=== PATIENT | female | born 1980 | race African-American/Black ===

== ENCOUNTER 2024-04-07 22:21 | Emergency (ER) | payer OTHER, SELFPAY ==
[2024-04-07 22:24] VITALS: BP 157/91
--- NOTE | 2024-04-07 23:49 | ED.GENMED ---
History of Present Illness
General
Chief Complaint: Generalized Pain
Source: patient and family (mother)
Time Seen by Provider: 04/07/24 23:36
History of Present Illness
History of Present Illness:
44-year-old female presents to the emergency room complaining of back pain and left knee pain. Patient has a history of spinal issues for which she sees pain management. She is supposed to have an epidural injection at some point in the next
couple weeks. Patient is prescribed oxycodone for her chronic back pain and knee pain. Patient states the medication is helping with her back pain but not with her knee pain. Patient also is experiencing heavy menstrual bleeding. She states she
uses depends for her menstrual bleeding and uses 2 or 3 a day. Patient does not see a pbx technician. Patient's mother is with her and is the one who brought up the menstrual bleeding. The patient is only concerned about her knee pain. Patient had
been hospitalized here 2021 with severe anemia requiring multiple transfusions related to menstrual bleeding. Patient evidently did not follow-up for this as an outpatient. Patient has been prescribed other medications which she is not compliant
with. She is supposed be taking metformin and lisinopril.
Past History
Past History
ED Past Medical History: GERD and Other (Gallstones)
ED Past Surgical History:
Social History
Tobacco: Non-smoker
Phy Exam
Physical Exam
Physical Exam:
General: Awake, Alert, Oriented X3. Patient has has very high BMI, appears uncomfortable
Vitals: unremarkable
Head: Atraumatic
Eyes: Pupils equal, EOMI
Throat: Airway intact, no exudates
Neck: Trachea midline
Lungs: Clear and equal b/l
Heart: Regular rate, no murmurs
Abd: Soft, Nontender, No pulsatile mass
Neuro: Nonfocal
Skin: Warm, dry, no rash
Extremities: pulses equal b/l, no edema
Course
Orders/Labs/Results
Orders:
Orders
04/07/24 23:46
Basic Metabolic Panel Urgent
Complete Blood Count/With Diff Urgent
HCG, Serum Qualitative Screen Urgent
Test Result ONCE
04/07/24 23:47
Type+Screen Urgent
HYDROmorphone [Dilaudid] 1 mg IV NOW STA
04/08/24 00:00
CR Knee - Left 4 Or More View* Urgent
Reason For Exam: knee pain
04/08/24 01:38
Knee Immobilizer Left-Treatmen ONCE
HYDROmorphone [Dilaudid] 0.5 mg IV NOW STA
04/08/24 01:40
Tranexamic Acid [Cyklokapron] 1,300 mg PO NOW STA
Abnormal Lab Results
04/08/24
00:00
WBC 12.4 H 10^3/uL
(4.8-10.8)
RBC 3.61 L 10^6/uL
(4.20-5.40)
Hgb 6.1 L* g/dL
(12.0-16.0)
Hct 22.2 L %
(37.0-47.0)
MCV 61.5 L fL
(81.0-99.0)
MCH 16.9 L pg
(27.0-31.0)
MCHC 27.5 L g/dL
(33.0-37.0)
RDW 19.1 H %
(11.5-14.5)
Plt Count 455 H 10^3/uL
(130-400)
Abs Immat Gran (auto) 0.1 H 10^3/uL
(0-0.05)
Absolute Neuts (auto) 8.3 H 10^3/uL
(1.4-6.5)
Absolute Monos (auto) 0.9 H 10^3/uL
(0.1-0.6)
Immature Gran % 0.8 H %
(0-0.5)
Glucose 107 H mg/dl
(70-99)
Crossmatch IS Only See Detail
04/08/24 00:00
04/08/24 00:00
Vital Signs
Initial and Last Documented VS:
Initial Vital Signs
Temp Pulse Resp BP Pulse Ox
98.1 F 106 18 157/91 98
04/07/24 22:24 04/07/24 22:24 04/07/24 22:24 04/07/24 22:24 04/07/24 22:24
Last Documented Vital Signs
Temp Pulse Resp BP Pulse Ox
98.1 F 101 18 156/81 100
04/07/24 22:24 04/08/24 00:36 04/08/24 00:36 04/08/24 00:36 04/08/24 00:36
MDM/Problems Addressed
Differential Diagnosis Includes:
Radiculopathy, chronic pain syndrome. From a vaginal bleeding standpoint dysfunctional uterine bleeding, symptomatic anemia
MDM/Problems Addressed:
Patient's knee x-ray is unremarkable. Suspect she is having an exacerbation of chronic pain. Was given a low bit of pain medicine here which helped. From a vaginal bleeding standpoint patient found to have a significant anemia at hemoglobin of
6.1. We discussed transfusion here and in fact I ordered a unit of blood but the patient decided that she did not want to get the blood now. She has family care issues and want to go home with her family. We discussed the importance of returning
if she feels any worse. Patient given prescriptions for tranexamic acid as well as iron. She should call her pbx technician for [place] in the morning. Return for shortness of breath, dizziness etc. Patient has had dysfunctional uterine bleeding for
some time. She had an ultrasound here in 2021 which was unremarkable. Patient tells me she did have an endometrial biopsy by a pbx technician in [place] which showed no signs of cancer. This was about a year ago.
*Pulse Oximetry
Patient hypoxic: no
*Critical Care Note
Total Time (30-74mins, 75-104mins- exclusive of procedures): Not Applicable
ED Attending Note
-
Portions of this chart may have been created with voice recognition software.� Occasional wrong word or��sound alike� substitutions may have occurred due to the inherent limitations of voice recognition software.
Discharge Plan
Departure
Patient Disposition: Home (Routine Discharge)
Date of Disposition: 04/08/24
Time of Disposition: 01:41
Patient with high blood pressure during this ER visit?: No
Condition: Good
Discharge Problem:
Dysfunctional uterine bleeding, Anemia
Instructions: Heavy Periods ED
Prescriptions:
New
ferrous sulfate [FeroSul] 325 mg (65 mg iron) tablet
325 mg PO TID Qty: 90 0RF
tranexamic acid 650 mg tablet
1,300 mg PO TID 5 Days Qty: 30 0RF
No Action
ferrous sulfate [FeroSul] 325 MG tablet
325 mg PO DAILY
norethindrone acetate 5 MG tablet
5 mg PO BID
Patient Comments:
patient was at [facility] on 03/10/22 and only recieved 28 tablets
oxycodone 10 MG tablet
10 mg PO TID
Patient Comments:
03/13/22 pt picked up on 02/21/22 #90
cyanocobalamin (vitamin B-12) 1,000 mcg Tablet
1,000 mcg PO DAILY 30 Days Qty: 30 0RF
Referrals:
NONE,* [Family Provider] -
Noemí Gardner MD [Active] -
Activity Restrictions/Additional Instructions:
Please call your pbx technician first thing in the morning to discuss the abnormal bleeding. Your blood count is very low. Return to the ER if you develop shortness of breath, dizziness or feel you are getting worse.
Interventions
Interventions:
*Risk Screen - Suicide Last Done: 04/08/24 00:39
*General Assessment Last Done: 04/08/24 00:39
*Neglect/Abuse Screening Last Done: 04/08/24 00:39
*Nursing Disposition Last Done: 04/08/24 02:32
Discharge Date and Time
Discharge Date/Time: 04/08/24 02:33
Print Language: TUNISIAN
[2024-04-08] MEDS: DILAUDID 1 MG IV (00:13)
[2024-04-08 00:33] LABS: % Basophils 0.7 % (0-2); % Eosinophils 0.8 % (0-6); % Immature Granulocytes 0.8 % (0-0.5); % Lymphocytes 23.5 % (20.5-51.1); % Monocytes 6.9 % (1.7-9.3); % Neutrophils 67.3 % (42.2-75.2); Absolute Basophils 0.1 10^3/uL (0-0.2); Absolute Eosinophils 0.1 10^3/uL (0-0.7); Absolute Immature Granulocytes 0.1 10^3/uL (0-0.05); Absolute Lymphocytes 2.9 10^3/uL (1.2-3.4); Absolute Monocytes 0.9 10^3/uL (0.1-0.6); Absolute Neutrophils 8.3 10^3/uL (1.4-6.5); Hematocrit 22.2 % (37.0-47.0); Hemoglobin 6.1 g/dL (12.0-16.0); Mean Corp Hgb Conc. 27.5 g/dL (33.0-37.0); Mean Corpuscular Hgb 16.9 pg (27.0-31.0); Mean Corpuscular Volume 61.5 fL (81.0-99.0); Mean Platelet Volume 9.8 fL (7.4-10.4); Nucleated Red Blood Cells % 0.4 %; Platelet Count 455 10^3/uL (130-400); Red Blood Cell Count 3.61 10^6/uL (4.20-5.40); Red Cell Dist. Width 19.1 % (11.5-14.5); White Blood Cell Count 12.4 10^3/uL (4.8-10.8)
[2024-04-08 00:36] VITALS: BP 156/81
[2024-04-08 00:39] LABS: HCG, Serum Qualitative Screen Negative
[2024-04-08 00:45] LABS: Blood Urea Nitrogen 11 mg/dl (7-17); Calcium 9.9 mg/dl (8.4-10.2); Carbon Dioxide 27 mmol/L (22-30); Chloride 101 mmol/L (98-107); Glucose 107 mg/dl (70-99); Potassium 4.2 mmol/L (3.5-5.1); Sodium 137 mmol/L (135-145); eGFR > 60.00
[2024-04-08] MEDS: CYKLOKAPRON 1300 MG PO (01:48)
[2024-04-08] MEDS: DILAUDID 0.5 MG IV (01:49)
[2024-04-08 01:50] LABS: Anisocytosis 1+; Microcytosis 2+; Normal RBC Morphology No
[2024-04-08 01:51] LABS: Polychromasia Occasional; Target Cells 1+
[2024-04-08 01:52] LABS: Tear Drop Red Blood Cells Occasional
[2024-04-08 01:53] LABS: Hypochromasia 2+
[2024-04-08 01:54] LABS: Basophilic Stippling Occasional; Ovalocytes 1+; Stomatocytes Occasional
== END 2024-04-08 02:33 | disposition home or self-care (01) ==
LOC: EMR 22:21
PROVIDERS: EMERGENCY PHYSICIAN Emergency Medicine
DX: N93.8 Other specified abnormal uterine and vaginal bleeding (principal); D64.9 Anemia, unspecified; M25.562 Pain in left knee; M54.9 Dorsalgia, unspecified; G89.29 Other chronic pain; K21.9 Gastro-esophageal reflux disease without esophagitis
CPT/HCPCS: 99284; 96374; 96376; 73564; 80048; 84703; 85025; 86850; 86900; 86901

== ENCOUNTER 2024-04-29 06:06 | Inpatient (IN) | payer OTHER, SELFPAY ==
[2024-04-29] VITALS (18 sets, daily range): BP systolic 114–155; BP diastolic 59–97; BMI 51.8
--- NOTE | 2024-04-29 03:33 | ED.GENMED ---
History of Present Illness
General
Chief Complaint: Breathing Problem
Source: patient and family
Exam Limitations: none
Time Seen by Provider: 04/29/24 03:20
Nursing documentation reviewed up to this point in time: agreed with
History of Present Illness
History of Present Illness:
Pleasant 44-year-old female GMitch, P3-1-3-3, presents with acute on chronic low back pain and dysfunctional uterine bleeding has been present for the last 3 to 4 months. Patient also complaining of dizziness and shortness of breath. To control the
bleeding, patient has been using Depends stuffed with tissues. She states that she has been leaking blood through the depends and down her leg. She states that she changes 4 times a day. Patient was seen by [facility] not within the [place]
network, 1 year ago and had an ultrasound and stated 'there was no cancer'. Patient is followed by pain management for chronic spine issues. She states she just had an MRI if she stated that 'some abnormalities were found '. Patient has been
having heavy menstrual bleeding for the last 4 months. Was seen in the emergency department recently and prescribed a medication to help with the uterine bleeding. She states that 'the pharmacy lost the prescription' and was unable to get it
filled. Patient and mom both did not call back to the emergency department to rectify the situation. Patient also has a history of medical noncompliance. She is on metformin and lisinopril but admits to not taking them compliantly. Patient
reports that pain management has prescribed oxycodone for her pain but states that the oxycodone does not typically work. Patient was seen in the emergency department recently. She states that she was given a prescription for norethindrone, but
'the pharmacy lost the prescription '. She has not started on it.
Past History
Past History
ED Past Medical History: GERD and Other (Gallstones)
ED Past Surgical History:
Social History
Tobacco: Non-smoker
Review of Systems
Review of Systems
Allergies reviewed?: Yes
Other source history: family
All Other Systems: Not applicable
Constitutional: Reports no symptoms
EENT: Reports no symptoms
Respiratory: Reports no symptoms
Cardiac: Reports no symptoms
ABD/GI: Reports no symptoms
: Reports no symptoms
Musculoskeletal: Reports no symptoms
Skin: Reports no symptoms
Neurological: Reports no symptoms
Endocrine: Reports no symptoms
Hematologic/Lymphatic: Reports no symptoms
Psychiatric: Reports anxiety
Phy Exam
General Physical Exam
General Presentation: mild distress
General age: appears older than age
General Skin: warm and dry
General Habitus: obese
General Mental: alert
General Hydration: appears well hydrated
Cardiovascular Exam
Cardiovascular Exam: regular rate/rhythm and no edema
Pulmonary Exam
Pulmonary Exam: lungs clear and no respiratory distress
Gastrointestinal Exam
Gastrointestinal Exam: normal bowel sounds, soft and non distended
Musculoskeletal Exam
Musculoskeletal Exam: full ROM and neck pain
Skin Exam
Skin Exam: normal color and warm/dry
Psychiatric Exam
Psychiatric Exam: normal mood/affect
Course
Orders/Labs/Results
Orders:
Orders
04/29/24 03:29
Urinalysis Reflex To Culture Urgent
04/29/24 03:30
0.9% Sodium Chloride 1000 ml [Nss] 1,000 ml IV BOLUS
HYDROmorphone [Dilaudid] 0.5 mg IV NOW STA
04/29/24 03:49
Type+Screen Urgent
Complete Blood Count/With Diff Urgent
Comprehensive Metabolic Panel Urgent
Lactic Acid Urgent
Lipase Urgent
PTT Urgent
Prothrombin Time Urgent
Abnormal Lab Results
04/29/24
03:49
RBC 3.08 L 10^6/uL
(4.20-5.40)
Hgb 5.1 L* g/dL
(12.0-16.0)
Hct 18.7 L* %
(37.0-47.0)
MCV 60.7 L fL
(81.0-99.0)
MCH 16.6 L pg
(27.0-31.0)
MCHC 27.3 L g/dL
(33.0-37.0)
RDW 19.5 H %
(11.5-14.5)
Abs Immat Gran (auto) 0.1 H 10^3/uL
(0-0.05)
Absolute Lymphs (auto) 3.5 H 10^3/uL
(1.2-3.4)
Absolute Monos (auto) 0.8 H 10^3/uL
(0.1-0.6)
04/29/24 03:49
Vital Signs
Initial and Last Documented VS:
Initial Vital Signs
Temp Pulse Resp BP Pulse Ox
99.1 F 100 22 142/89 100
04/29/24 02:59 04/29/24 02:59 04/29/24 02:59 04/29/24 02:59 04/29/24 02:59
Last Documented Vital Signs
Temp Pulse Resp BP Pulse Ox
99.1 F 100 22 142/89 100
04/29/24 02:59 04/29/24 02:59 04/29/24 02:59 04/29/24 02:59 04/29/24 02:59
*Critical Care Note
Total Time (30-74mins, 75-104mins- exclusive of procedures): 35
comment:
Critical care statement: A total of 35 minutes of critical care time was provided for this patient. This time is separate from time utilized to perform the aforementioned documented procedures. Aggregate critical care time includes only time
during which I was engaged in work directly related to the patient's care, as described above, whether at the bedside or elsewhere in the Emergency Department.
Patient Management
Social determinants of health affecting care: Poor outpatient follow-up
Discussion with other providers: Hospitalist (For admission to the hospital) and Specialty Plant Supervisor (Spoke with Dr. Krystyna Martinez, who agreed with plan to give blood, TXA, make patient n.p.o., get ultrasound)
Escalation/DeEscalation of care consider admission/obs:
Given patient's critical hemoglobin, patient signed blood consent, and will be admitted to the hospitalist service with a consult to [facility] [facility].
ED Attending Note
-
Portions of this chart may have been created with voice recognition software.� Occasional wrong word or��sound alike� substitutions may have occurred due to the inherent limitations of voice recognition software.
Discharge Plan
Departure
Patient Disposition: Admit
Date of Disposition: 04/29/24
Time of Disposition: 04:38
Admit to: Telemetry
Presentation/result/management discussed w/ accepting MD/DO: Hospitalist
Discharge Problem:
Symptomatic anemia, Dyspnea, DUB (dysfunctional uterine bleeding)
Prescriptions:
No Action
oxycodone 10 MG tablet
10 mg PO TID
metformin
500 mg PO DAILY
Referrals:
NONE,* [Family Provider] -
Interventions
Interventions:
*General Assessment Last Done: 04/29/24 02:59
*Neglect/Abuse Screening Last Done: 04/29/24 02:59
ED- Fall Risk Assessment Last Done: 04/29/24 02:59
*ED COVID-19 Vaccine History Last Done: 04/29/24 02:59
Discharge Date and Time
Print Language: KYRGYZ
[2024-04-29 04:02] LABS: % Basophils 0.7 % (0-2); % Eosinophils 1.4 % (0-6); % Immature Granulocytes 0.5 % (0-0.5); % Monocytes 7.2 % (1.7-9.3); % Neutrophils 57.2 % (42.2-75.2); Absolute Basophils 0.1 10^3/uL (0-0.2); Absolute Eosinophils 0.2 10^3/uL (0-0.7); Absolute Immature Granulocytes 0.1 10^3/uL (0-0.05); Absolute Lymphocytes 3.5 10^3/uL (1.2-3.4); Absolute Monocytes 0.8 10^3/uL (0.1-0.6); Absolute Neutrophils 6.1 10^3/uL (1.4-6.5); Hematocrit 18.7 % (37.0-47.0); Hemoglobin 5.1 g/dL (12.0-16.0); Mean Corp Hgb Conc. 27.3 g/dL (33.0-37.0); Mean Corpuscular Hgb 16.6 pg (27.0-31.0); Mean Corpuscular Volume 60.7 fL (81.0-99.0); Mean Platelet Volume 9.1 fL (7.4-10.4); Nucleated Red Blood Cells % 0.2 %; Platelet Count 394 10^3/uL (130-400); Red Blood Cell Count 3.08 10^6/uL (4.20-5.40); Red Cell Dist. Width 19.5 % (11.5-14.5); White Blood Cell Count 10.6 10^3/uL (4.8-10.8)
[2024-04-29 04:10] LABS: PT 14.2 Sec (11.4-14.6)
[2024-04-29 04:11] LABS: APTT 27.9 Sec (23.4-35.0)
[2024-04-29] MEDS: DILAUDID 0.5 MG IV (04:16)
[2024-04-29] MEDS: NSS 1000 IV ×2 (04:17→07:02)
[2024-04-29 04:20] LABS: Lactic Acid 1.4 mmol/L (0.7-2.0)
[2024-04-29 04:22] LABS: ALT (SGPT) < 10 U/L (0-35); AST (SGOT) 15 U/L (14-36); Alkaline Phosphatase 80 U/L (38-126); Blood Urea Nitrogen 11 mg/dl (7-17); Calcium 9.7 mg/dl (8.4-10.2); Carbon Dioxide 26 mmol/L (22-30); Chloride 103 mmol/L (98-107); Estimated Creatinine Clearance 111 ml/min; Glucose 135 mg/dl (70-99); Lipase 126 U/L (23-300); Potassium 4.1 mmol/L (3.5-5.1); Sodium 138 mmol/L (135-145); Total Bilirubin 0.2 mg/dl (0.2-1.3); Total Protein 7.1 g/dl (6.3-8.2); eGFR > 60.00
[2024-04-29 04:38] LABS: Anisocytosis 2+; Hypochromasia 2+; Normal RBC Morphology No; Ovalocytes Slight; Polychromasia 1+
--- NOTE | 2024-04-29 04:51 | HPS.HSE ---
Family Physician
-
Family Physician: * NONE
Chief Complaint
-
Vagina bleeding last 3-4 months
History of Present Illness
44F with Obesity HX G8, P3-1-3-3 , HX dysfunctional uterine bleeding complicated by ACBLA, Fe def anemia seen at ER for evalaution of intractable heavy menstrual bleeding for last 3- 4months.
-require to change Depends diaper 4 times a day
- also blood leaking through depends and down to her legs
- seen by AIRCRAFT LOADMASTER SUPERINTENDENT 1 year ago and had an ultrasound and stated 'there was no cancer
- seen at ER on 03/19/24 but loss prescription for norethindrone 5 mg PO BID from ER
- HX similar issues in 2021 require admission
- Hgb 5.1 today
At ER:
Tranexamic IV x1
NS 1 L given
Medical History
Past Medical History
Past Medical History: Reports GERD and Other (Gall stones )
Past Surgical History: Reports
Social History
Tobacco: Non-smoker
Alcohol: None
Drug: None
Family History
Family History: Not pertinent
Allergies / Home Medications
Allergies reflects when Allergies were last updated in [facility].
Home Medications with original date entered in [facility]
Allergy/Medication List:
Allergies
Allergy/AdvReac Type Severity Reaction Status Date / Time
No Known Allergies Allergy Verified 04/29/24 02:58
Home Medications
oxycodone 10 mg tablet 10 mg PO TID Pain 03/13/22
metformin 500 mg PO DAILY 04/29/24
Review of Systems
-
Constitutional: Reports No Symptoms
EENT: Reports No Symptoms
Respiratory: Reports No Symptoms
Cardiac: Reports No Symptoms
Abdomen/GI: Reports No Symptoms
: Reports See HPI
Musculoskeletal: Reports No Symptoms
Skin: Reports No Symptoms
Neurological: Reports No Symptoms
Endocrine: Reports No Symptoms
Hematologic/Lymphatic: Reports No Symptoms
Psych: Reports No Symptoms
Physical Exam
Vital Signs
Vital Signs
Temp Pulse Resp BP Pulse Ox
99.1 F 97 20 146/76 99
04/29/24 02:59 04/29/24 04:46 04/29/24 04:46 04/29/24 04:46 04/29/24 04:46
Physical Exam
General: Well Developed, Well Nourished and No Apparent Distress
HEENT: NormoCephalic, Moist mucous membranes and Atraumatic
Respiratory: Clear
Cardiac: S1/S2 and Regular Rhythm; No Murmur or Rub
GI: Soft, Non Tender, Non Distended and Normal Bowel Sounds; No Organomegaly
Rectal: Deferred by Provider
Musculoskeletal: No Clubbing, No Cyanosis and No Edema
Skin: No Rash
Neuro: Nonfocal/grossly intact
Laboratory Results
-
04/29/24 03:49
04/29/24 03:49
Laboratory Results
PT 14.2 Sec (11.4-14.6) 04/29/24 03:49
INR 1.10 04/29/24 03:49
APTT 27.9 Sec (23.4-35.0) 04/29/24 03:49
Lactic Acid 1.4 mmol/L (0.7-2.0) 04/29/24 03:49
Total Bilirubin 0.2 mg/dl (0.2-1.3) 04/29/24 03:49
AST 15 U/L (14-36) 04/29/24 03:49
ALT < 10 U/L (0-35) 04/29/24 03:49
Alkaline Phosphatase 80 U/L (38-126) 04/29/24 03:49
Lipase 126 U/L (23-300) 04/29/24 03:49
Data Reviewed
-
Lab Data: Labs Reviewed by me
Old Records: Reviewed
Impression/Plan
-
Reviewed VS: T 99.1, BP 145/95 HR 90s POx 93 RR 19s
Data
Hgb 5.1 - 6.1 on 04/08/24, 8 on 03/14/22
MCV 60s
Unremarkable CMP
Pending US pelvis only
03/14/22 US Pelvis W Transvag Combined1.
1. The endometrium measures 1.7 cm in thickness, which is borderline thickened, depending on the patient's phase of her menstrual cycle. Consider tissue sampling and/or saline infused hysterosonogram as appropriate.
2. No additional sonographic abnormalities demonstrated.
Last hospitalist admission:03/13/22 - 03/14/22
PRIMARY DIAGNOSIS:
1. Acute vaginal bleed with acute blood loss anemia.
2. Iron deficiency anemia.
3. B12 deficiency.
ASSESSMENT & PLAN
Pending Rx reconciliation
Acute blood loss anemia due to intractable vaginal bleeding due to HX DUH
HX Iron def anemia
Hgb 5.1 on admission
- T & C
- Blood consented by ER attd
- Pending 2 PRBCs Tx
- f/u pot transfusion Hgb
- cont Norethindrone BID
- IV Venofer while in the hospital
- start B12 supplement
- COMMISSIONS COORDINATOR consulted
Narcotic dependent Ch LBP
- PRN narcotic analgesia
- avoid NSAIDS and Toradol
- PT/OT
HX GERD
Morbid obesity with chr ambulatory dysfunction
DVT prophylaxis: SCD
CODE status: Full
IP TLM
[2024-04-29] MEDS: TRANEXAMIC ACID 100 IV (05:28)
[2024-04-29] MEDS: ZOFRAN 4 MG IV (05:48)
[2024-04-29] MEDS: DILAUDID 1 MG IV ×4 (07:20→19:53)
[2024-04-29 09:45] LABS: Iron < 20 ug/dl (37-170)
[2024-04-29 09:53] LABS: Total Iron Binding Capacity 424 ug/dl (265-497)
[2024-04-29] MEDS: GLUCOPHAGE 500 MG PO (10:05)
--- NOTE | 2024-04-29 10:11 | PTCARENOTE ---
Received patient from ED in stretcher, patient ambulated to bathroom then to bed; Blood currently transfusing; Family at bedside; Patient states vaginal bleeding has decreased since arriving to the ED; Call hugo within reach; Bed in lowest position,
wheels locked; Assessment ongoing
--- NOTE | 2024-04-29 10:17 | CON.MD ---
Consultation - Medical
-
Patient seen and examined
Full consult dictated
Assessment: Severe anemia. Abnormal Uterine Bleeding. Patient noncompliant with prior management for same problem.
Recommendation: Resume Aygestin 5 mg 2 pills daily for 10 days, then stop, expect menses and then begin Aygestin 5 mg daily for 20 days. Return to office in 2-4 weeks for re-evaluation, importance stressed. Recommend consult with GI to exclude any
GI involvement in the anemia. Take daily vitamin with iron and eat iron rich foods
Time spent reviewing records, personal review of ultrasound with radiologist and time spent with patinet including coordination of care required 60 minutes
[2024-04-29 11:24] LABS: HCG, Serum Qualitative Screen Negative
[2024-04-29 12:56] LABS: Glucose - Point of Care 356 mg/dl (70-99)
[2024-04-29 13:23] LABS: Urine Albumin Negative (Neg - Trace); Urine Bilirubin Negative (Negative); Urine Character Clear (Clear); Urine Color Yellow; Urine Glucose Negative (Negative); Urine Ketone Negative (Negative); Urine Leukocyte Negative (Negative); Urine Nitrite Negative (Negative); Urine Occult Blood 1+ (Negative); Urine Specific Gravity 1.025 (<1.030); Urine Urobilinogen Negative (Neg - 1+)
[2024-04-29] MEDS: NOVOLOG FLEXPEN-LOW RESISTANCE 5 UNITS SC (13:45)
[2024-04-29 13:46] LABS: Urine Hyaline Cast 0-2 /LPF (0-2); Urine Mucus Moderate; Urine Squamous Cell 16-20 /LPF (Few)
[2024-04-29 13:47] LABS: Urine Bacteria Few (Negative); Urine Red Blood Cell None Seen /HPF (0-2); Urine White Cell 0-2 /HPF (0-5)
[2024-04-29] MEDS: BENADRYL 25 MG IV (14:03)
--- NOTE | 2024-04-29 14:10 | PTCARENOTE ---
Called to room by patient for nausea/vomiting one time, patient also complained of itching throughout body; Patient denies chest pain and shortness of breath; Vital signs taken - temperature 98.2 oral, SaO2 99%, HR 94, BP 142/80; Dr. Caraballo made
aware; Stat dose of IV Benadryl ordered, see MAR; Per Dr. Caraballo continue blood transfusion and recheck hemoglobin once finished; Plan of care ongoing
[2024-04-29] MEDS: ZOFRAN 4 MG PO (14:57)
[2024-04-29 16:07] LABS: Hemoglobin 6.7 g/dL (12.0-16.0)
--- NOTE | 2024-04-29 17:00 | W.DCSUMMARY ---
Discharge Summary
Discharge Data
Date of Admission: 04/29/24
Date of Discharge: 04/29/24
-
Pending Results: No
Hospital Course
Discharge diagnosis
Dysfunctional uterine bleeding
Chronic anemia with drifting down hemoglobin.
Nonanaphylactic transfusion reaction
Type 2 diabetes/known NIDDM
Obesity with BMI of 51
Chronic pain with opiate dependence.
Patient presents with dysfunctional uterine bleeding and chronic anemia with trending down hemoglobin to 5. Remains hemodynamically stable. Seen in consultation by ADVANCED MANUFACTURING ASSOCIATE.
Laboratory workup with negative test.
Stable electrolytes and renal function.
Pelvic ultrasound with normal endometrial thickness
Treated with tranexamic acid while in the emergency room with improvement of vaginal bleeding
Transfused 2 units of packed blood cells with improved creatinine from 5-6.7
While transfused had known anaphylactic transfusion reaction with itching and nausea responded to Benadryl
Follow-up bilirubin and urinalysis evaluated as a part of transfusion reaction workup.
Treated with IV iron.
As per ADVANCED MANUFACTURING ASSOCIATE recommendation will be initiated on norethindrone as outpatient
Follow-up information for ADVANCED MANUFACTURING ASSOCIATE provided in discharge instructions
Discharge Plan
-
Patient Disposition: Home (Routine Discharge)
Discharge Diagnosis/Procedures: Dysfunctional uterine bleeding.
Condition: Good
Diet: Diabetic, Carb Controlled
Referrals:
Ac Peraza MD [Active] - in two to four weeks
NONE,* [Family Provider] -
Prescriptions:
New
norethindrone acetate 5 mg tablet
10 mg PO DAILY Qty: 30 0RF
Rx Instructions:
Start with 10mg daily for 10 days, change to 5 mg daily for 20 days beginning on day 5 of the cycle
Continued
oxycodone 10 MG tablet
10 mg PO TID
omeprazole 20 mg Tablet,Delayed Release (Dr/Ec)
40 mg PO DAILY
melatonin 5 mg Tablet
5 mg PO HSPRN PRN (Reason: sleep)
lidocaine 5 % Ointment
1 applic TOPICAL TIDPRN PRN (Reason: left knee)
metformin 500 mg Tablet
500 mg BID
Discontinued
ibuprofen 800 mg Tablet
800 mg PO BIDPRN PRN (Reason: mild pain)
Discharge Orders:
Discharge Patient (As Directed); Ordered 04/29/24
Ordered By: Heath Caraballo
Discharge Date and Time
Print Language: EQUATORIAL GUINEAN
[2024-04-29 17:36] LABS: Glucose - Point of Care 147 mg/dl (70-99)
[2024-04-29] MEDS: NOVOLOG FLEXPEN-LOW RESISTANCE SC (17:37)
[2024-04-29] MEDS: FERRLECIT 110 MG IV (18:18)
--- NOTE | 2024-04-29 18:42 | PTCARENOTE ---
Patient currently refusing to give urine specimen and to have blood drawn for follow-up labs regarding transfusion reaction protocol
[2024-04-29 19:17] LABS: Total Bilirubin 0.5 mg/dl (0.2-1.3)
[2024-04-29] MEDS: FLUSH (NSS) 2 FLUSH IV (19:56)
--- NOTE | 2024-04-29 19:57 | PTCARENOTE ---
Addendum entered by Bryanna Mart RN 04/29/24 20:09:
This nurse was able to draw blood and then patient provided urine.
Original Note:
Rn mission coordinator- This nurse entered patient's room to given patient her dose of iron. Patient and mother having multiple questions. Patient asking why she was being dc with hemoglobin of 6.7. Explained dc plan of care. Clarification with
Stu the medication that patient was being d/c on. Instructed patient to take the medication as prescribed and to call Dr. Peraza office and get an appointment with them within a month. 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
afford to come back and forth to the hospital or doctors office. This nurse explained that Dr. Pearza indicted through tiger text that if she didnt take the medication, she would bleed, and her hemoglobin would only get worse and that she needed
to follow up with Dr. Peraza to confirm that the medication is working. Patient provided with dc instructions and card explaining how to access her patient portal. Patient then requesting dilaudid for pain. Primary nurse informed of of above
conversation and request for dilaudid.
[2024-04-29 20:22] LABS: Glucose - Point of Care 138 mg/dl (70-99)
== END 2024-04-29 20:37 | disposition home or self-care (01) | DRG 760 ==
LOC: 2 SOUTH 06:06
PROVIDERS: ADMITTING PHYSICIAN Internal Medicine; ATTENDING PHYSICIAN Internal Medicine; EMERGENCY PHYSICIAN Student in an Organized Health Care Education/Training Program; OTHER PHYSICIAN Obstetrics & Gynecology
PROC: 30233N1 Transfusion of Nonautologous Red Blood Cells into Peripheral Vein, Percutaneous Approach (ICD-10-PCS; 2024-04-29)
DX: N93.8 Other specified abnormal uterine and vaginal bleeding (principal); D62 Acute posthemorrhagic anemia; Z68.43 Body mass index [BMI] 50.0-59.9, adult; F11.20 Opioid dependence, uncomplicated; K21.9 Gastro-esophageal reflux disease without esophagitis; E11.9 Type 2 diabetes mellitus without complications; D50.9 Iron deficiency anemia, unspecified; E53.8 Deficiency of other specified B group vitamins; E66.01 Morbid (severe) obesity due to excess calories; G89.29 Other chronic pain; Z79.84 Long term (current) use of oral hypoglycemic drugs; T80.92XA Unspecified transfusion reaction, initial encounter; R11.0 Nausea; L29.9 Pruritus, unspecified; Y84.8 Other medical procedures as the cause of abnormal reaction of the patient, or of later complication, without mention of misadventure at the time of the procedure; Z91.198 Patient's noncompliance with other medical treatment and regimen for other reason
CPT/HCPCS: 36430; 76856; 80053; 81003; 81015; 82247; 82728; 82962; 83540; 83550; 83605; 83690; 84703; 85018; 85025; 85610; 85730; 86078; 86850; 86900; 86901; 86920; 96361; 96374; 96375; 99291; J2916; P9016

== ENCOUNTER 2024-09-22 01:22 | Emergency (ER) | payer OTHER, SELFPAY ==
[2024-09-22] VITALS (7 sets, daily range): BP systolic 129–172; BP diastolic 76–99; BMI 52.3
[2024-09-22 01:48] LABS: Urine Albumin Trace (Neg - Trace); Urine Bilirubin Negative (Negative); Urine Character Clear (Clear); Urine Color Yellow; Urine Glucose Negative (Negative); Urine Ketone Negative (Negative); Urine Leukocyte Negative (Negative); Urine Nitrite Negative (Negative); Urine Occult Blood Negative (Negative); Urine Specific Gravity 1.025 (<1.030); Urine Urobilinogen Negative (Neg - 1+)
--- NOTE | 2024-09-22 02:34 | ED.GENMED ---
History of Present Illness
General
Chief Complaint: Flank Pain
Source: patient and previous hospital records (Previous hospitalization April 2024 for severe symptomatic anemia related to dysfunctional uterine bleeding.)
Exam Limitations: none
Time Seen by Provider: 09/22/24 02:18
Nursing documentation reviewed up to this point in time: agreed with
History of Present Illness
History of Present Illness:
This is a 44-year-old woman who has history of chronic back pain, chronic left knee pain, chronically narcotic dependent�follows with pain management.
She also has history of dysfunctional uterine bleeding, anemia related to DU B and was hospitalized April 2024 for severe symptomatic anemia requiring blood transfusions. She admits that she has not followed up with [facility] SUPERVISOR nor with follow-up labs
since April.
She presents with 2-day history of exacerbation of her low back pain, exacerbation of her left knee pain stating oxycodone has not been effective for her pain. She denies injury nor fall.
She denies fever nor chills, denies abdominal pain but does note 2 loose stools today. She has had no nausea nor vomiting, no cough but does note some dyspnea on exertion over the past few days.
Her menses have been heavy, she bled for 2 weeks with menstrual period ending 2 days ago. She denies chest pain nor palpitations, denies dizziness nor lightheadedness.
Similar complaint of back pain and left knee pain noted March 2024. Noted to be anemic at that point with hemoglobin of 6.1. Declined transfusion but then returned 1 month later, admitted for observation, received 2 units of packed red blood cells.
Evaluated by CARPENTRY SUPERVISOR. Given TXA, IV iron and discharged on norethindrone.
Patient states her menstrual periods are not continuous as they were previously but continues with heavy bleeding.
Past History
Past History
ED Past Medical History: GERD, HTN, NIDDM, Other (Gallstones; chronic back pain, chronic left knee pain-narcotic dependent) and Other (Dysfunctional uterine bleeding with symptomatic anemia)
ED Past Surgical History: Cholecystectomy and
Social History
Tobacco: Non-smoker
Alcohol: None
Personal:
Living: with family
Employment: Not employed
Family History
Family History: Other (Noncontributory)
Phy Exam
Physical Exam
Physical Exam:
GENERAL: A 44-year-old obese woman appears somewhat older than stated age. Awake and alert, appears in no acute distress. Mother is accompanying.
EYE: pupils equal and reactive. anicteric
NECK: Supple, nontender, no meningismus, no significant adenopathy.
ENT: oral mucosa is moist. No rhinorrhea.
CARDIAC: Regular rate and rhythm. no murmur.
LUNGS: Clear breath sounds bilaterally, no acute respiratory distress, no wheezes/rales/rhonchi
ABDOMEN: Rotund, soft, nondistended, without focal tenderness, no r/g, no cvat. normoactive BS.
BACK: Moderate bilateral paralumbar tenderness to palpation. No midline tenderness. No CVA tenderness.
NEUROLOGICAL: Alert and oriented x3, no focal neuro deficits. gait is steady.
SKIN: Warm and dry, normal color, skin intact. Papular slightly dry rash to upper back without erythema nor excoriation.
MUSCULOSKELETAL: No C/C/E. peripheral pulses are full and equal b/l. Mild tenderness about the left knee without effusion nor erythema, full range of motion without difficulty. No crepitus.
PSYCH: Normal and appropriate interaction.
Course
Orders/Labs/Results
Orders:
Orders
09/22/24 01:40
HCG, Urine Qualitative Screen Urgent
Date Specimen was Collected: 09/22/24
Time Specimen was Collected: 01:32
Comment: ADD ON
Urinalysis Reflex To Culture Urgent
Date Specimen was Collected: 09/22/24
Time Specimen was Collected: 01:32
09/22/24 02:29
CMP [Comprehensive Metabolic Panel] Urgent
Complete Blood Count/With Diff Urgent
09/22/24 02:33
Acetaminophen [Tylenol] 1,000 mg PO NOW STA
HYDROmorphone [Dilaudid] 0.5 mg IV NOW STA
09/22/24 02:36
Add On- LAB Urgent
Tests Added?: serum qual HCG
09/22/24 02:54
COVID-19 Antigen Urgent
Source: Nasal Swab
Influenza A+B Rapid Molecular Urgent
SAUL Source: Nasal Swab
Specimen Description:
09/22/24 03:55
CR Chest - 2 Views Urgent
Comment:
Reason For Exam: DUFFY
09/22/24 04:02
HYDROmorphone [Dilaudid] 0.5 mg IV NOW STA
Abnormal Lab Results
09/22/24
02:29
WBC 11.4 H 10^3/uL
(4.8-10.8)
RBC 4.15 L 10^6/uL
(4.20-5.40)
Hgb 7.6 L g/dL
(12.0-16.0)
Hct 26.7 L %
(37.0-47.0)
MCV 64.3 L fL
(81.0-99.0)
MCH 18.3 L pg
(27.0-31.0)
MCHC 28.5 L g/dL
(33.0-37.0)
RDW 18.4 H %
(11.5-14.5)
Plt Count 501 H 10^3/uL
(130-400)
Absolute Neuts (auto) 6.7 H 10^3/uL
(1.4-6.5)
Absolute Lymphs (auto) 3.6 H 10^3/uL
(1.2-3.4)
Absolute Monos (auto) 0.8 H 10^3/uL
(0.1-0.6)
Glucose 161 H mg/dl
(70-99)
09/22/24 02:29
09/22/24 02:29
Vital Signs
Temp: 99.3 F
Initial and Last Documented VS:
Initial Vital Signs
Temp Pulse Resp BP Pulse Ox
98.4 F 119 24 172/99 100
09/22/24 01:28 09/22/24 01:28 09/22/24 01:28 09/22/24 01:28 09/22/24 01:28
Last Documented Vital Signs
Temp Pulse Resp BP Pulse Ox
99.3 F 119 24 131/78 98
09/22/24 02:34 09/22/24 01:28 09/22/24 01:28 09/22/24 04:00 09/22/24 04:00
MDM/Problems Addressed
Differential Diagnosis Includes:
Concern for acute exacerbation of chronic back pain, acute exacerbation of chronic left knee pain.
Concern for recurrent symptomatic anemia.
She is noted to have borderline low-grade fever, concern for acute viral illness, enteritis, occult pneumonia/URI.
Urinalysis is unremarkable.
Labs are pending. Will check COVID and influenza.
Will medicate with Tylenol and a small dose of IV Dilaudid.
Patient has known chronic back pain, chronic left knee pain, no recent fall or injury, no indication for radiologic studies at this point.
*Radiology
Radiology exam reviewed: preliminary read by ED provider (Chest x-ray is unremarkable. Clear lung yadav.)
*Pulse Oximetry
Patient hypoxic: no
*Critical Care Note
Total Time (30-74mins, 75-104mins- exclusive of procedures): Not Applicable
Update Note
Update Note:
04:45
Patient feeling improved after 2 IV doses of Dilaudid.
Resting comfortably.
She has had no diarrhea since arrival to the ED, continues to deny abdominal pain, no nausea nor vomiting.
Low-grade fever has dissipated.
Labs show moderate anemia with hemoglobin of 7.6 but actually improved from previous. Minimally elevated white blood cell count of 11.4.
Chemistries are unremarkable, COVID and flu testing are negative. Urinalysis is negative.
Chest x-ray is unremarkable, clear lung yadav.
I suspect viral syndrome and she admits that her mother had similar diarrheal GI symptoms a few days ago.
Recommend resumption of oral iron and a prescription has been provided. She follows with [facility] and recommend she follow-up with her worldwide chief creative officer regarding her dysfunctional uterine bleeding.
She follows with pain management for her chronic low back pain, chronic left knee pain. She was planned to have epidural steroid injection but apparently has been unable to find a provider to perform this due to her weight. She admits that her
paint prepper has been attempting to find a provider in the area to perform epidural steroid injection. I have offered referral number for our pain management but encouraged her to continue to follow-up with her own pain management
specialist.
Recommend supportive measures, staying well-hydrated on a daily basis, Tylenol as needed for fever.
Follow-up with PCP for recheck.
ED Attending Note
-
Portions of this chart may have been created with voice recognition software.� Occasional wrong word or��sound alike� substitutions may have occurred due to the inherent limitations of voice recognition software.
Discharge Plan
Departure
Patient Disposition: Home (Routine Discharge)
Date of Disposition: 09/22/24
Time of Disposition: 04:43
Patient with high blood pressure during this ER visit?: No
Condition: Good
Discharge Problem:
Acute viral syndrome, Acute exacerbation of chronic low back pain, Chronic pain of left knee, Chronic blood loss anemia
Instructions: Anemia caused by low iron in adults - Discharge instructions, Diarrhea in adults - ED discharge instructions
Prescriptions:
New
Slow Fe 137 mg (45 mg iron) tablet extended release
137 mg PO DAILY Qty: 30 1RF
No Action
oxycodone 10 MG tablet
10 mg PO TID
omeprazole 20 mg Tablet,Delayed Release (Dr/Ec)
40 mg PO DAILY
melatonin 5 mg Tablet
5 mg PO HSPRN PRN (Reason: sleep)
lidocaine 5 % Ointment
1 applic TOPICAL TIDPRN PRN (Reason: left knee)
metformin 500 mg Tablet
500 mg BID
norethindrone acetate 5 mg tablet
10 mg PO DAILY Qty: 30 0RF
Rx Instructions:
Start with 10mg daily for 10 days, change to 5 mg daily for 20 days beginning on day 5 of the cycle
Referrals:
Chris Gonzales MD [Family Provider] - Call in 1-3 days for appt
Stefan David MD [Active] - Call in 1-3 days for appt
Interventions
Interventions:
*Risk Screen - Suicide Last Done: 09/22/24 01:30
*General Assessment Last Done: 09/22/24 02:33
*Neglect/Abuse Screening Last Done: 09/22/24 02:33
ED- Fall Risk Assessment Last Done: 09/22/24 02:33
*ED COVID-19 Vaccine History Last Done: 09/22/24 02:33
NK-Sxdjfy-Mkysywnhfi Assessment Last Done: 09/22/24 02:33
ED-Female Genitourinary Assessment Last Done: 09/22/24 02:33
Discharge Date and Time
Print Language: BENGALI
[2024-09-22 02:42] LABS: HCG, Urine Qualitative Screen Negative
[2024-09-22 02:43] LABS: % Basophils 0.6 % (0-2); % Eosinophils 0.9 % (0-6); % Immature Granulocytes 0.3 % (0-0.5); % Lymphocytes 31.8 % (20.5-51.1); % Monocytes 7.2 % (1.7-9.3); % Neutrophils 59.2 % (42.2-75.2); Absolute Basophils 0.1 10^3/uL (0-0.2); Absolute Eosinophils 0.1 10^3/uL (0-0.7); Absolute Lymphocytes 3.6 10^3/uL (1.2-3.4); Absolute Monocytes 0.8 10^3/uL (0.1-0.6); Absolute Neutrophils 6.7 10^3/uL (1.4-6.5); Hematocrit 26.7 % (37.0-47.0); Hemoglobin 7.6 g/dL (12.0-16.0); Mean Corp Hgb Conc. 28.5 g/dL (33.0-37.0); Mean Corpuscular Hgb 18.3 pg (27.0-31.0); Mean Corpuscular Volume 64.3 fL (81.0-99.0); Mean Platelet Volume 9.1 fL (7.4-10.4); Nucleated Red Blood Cells % 0 %; Platelet Count 501 10^3/uL (130-400); Red Blood Cell Count 4.15 10^6/uL (4.20-5.40); Red Cell Dist. Width 18.4 % (11.5-14.5); White Blood Cell Count 11.4 10^3/uL (4.8-10.8)
[2024-09-22] MEDS: TYLENOL 1000 MG PO (02:56)
[2024-09-22] MEDS: DILAUDID 0.5 MG IV ×2 (02:57→04:08)
[2024-09-22 02:59] LABS: ALT (SGPT) 10 U/L (0-35); AST (SGOT) 18 U/L (14-36); Albumin 4.3 g/dl (3.5-5.0); Alkaline Phosphatase 90 U/L (38-126); Blood Urea Nitrogen 14 mg/dl (7-17); Calcium 9.6 mg/dl (8.4-10.2); Carbon Dioxide 28 mmol/L (22-30); Chloride 100 mmol/L (98-107); Estimated Creatinine Clearance > 125 ml/min; Glucose 161 mg/dl (70-99); Potassium 4.3 mmol/L (3.5-5.1); Sodium 139 mmol/L (135-145); Total Bilirubin 0.2 mg/dl (0.2-1.3); Total Protein 7.7 g/dl (6.3-8.2); eGFR > 60.00
[2024-09-22 03:32] LABS: COVID-19 Antigen Negative (Negative)
== END 2024-09-22 05:15 | disposition home or self-care (01) ==
LOC: EMR 01:22
PROVIDERS: EMERGENCY PHYSICIAN Emergency Medicine; FAMILY PHYSICIAN Internal Medicine
DX: B34.9 Viral infection, unspecified (principal); D50.0 Iron deficiency anemia secondary to blood loss (chronic); G89.29 Other chronic pain; M54.50 Low back pain, unspecified; I10 Essential (primary) hypertension; E11.9 Type 2 diabetes mellitus without complications; K21.9 Gastro-esophageal reflux disease without esophagitis; Z90.49 Acquired absence of other specified parts of digestive tract; Z79.891 Long term (current) use of opiate analgesic
CPT/HCPCS: 96374; 96376; 99284; 71046; 80053; 81003; 81025; 85025; 87502; 87811

== ENCOUNTER 2024-11-19 00:19 | Emergency (ER) | payer OTHER, SELFPAY ==
[2024-11-19 00:31] VITALS: BP 169/95
[2024-11-19 02:01] VITALS: BP 174/81; BMI 52.5
[2024-11-19 02:17] LABS: % Basophils 0.6 % (0-2); % Immature Granulocytes 0.5 % (0-0.5); % Lymphocytes 34.7 % (20.5-51.1); % Monocytes 6.8 % (1.7-9.3); % Neutrophils 55.4 % (42.2-75.2); Absolute Basophils 0.1 10^3/uL (0-0.2); Absolute Eosinophils 0.3 10^3/uL (0-0.7); Absolute Immature Granulocytes 0.1 10^3/uL (0-0.05); Absolute Lymphocytes 4.3 10^3/uL (1.2-3.4); Absolute Monocytes 0.9 10^3/uL (0.1-0.6); Absolute Neutrophils 6.9 10^3/uL (1.4-6.5); Hematocrit 22.5 % (37.0-47.0); Hemoglobin 6.1 g/dL (12.0-16.0); Mean Corp Hgb Conc. 27.1 g/dL (33.0-37.0); Mean Corpuscular Hgb 16.9 pg (27.0-31.0); Mean Corpuscular Volume 62.5 fL (81.0-99.0); Mean Platelet Volume 9.5 fL (7.4-10.4); Nucleated Red Blood Cells % 0.6 %; Platelet Count 536 10^3/uL (130-400); Red Cell Dist. Width 19.2 % (11.5-14.5); White Blood Cell Count 12.5 10^3/uL (4.8-10.8)
[2024-11-19 02:24] LABS: HCG, Serum Qualitative Screen Negative
[2024-11-19 02:30] LABS: ALT (SGPT) < 10 U/L (0-35); AST (SGOT) 17 U/L (14-36); Albumin 4.1 g/dl (3.5-5.0); Alkaline Phosphatase 91 U/L (38-126); Blood Urea Nitrogen 11 mg/dl (7-17); Calcium 9.7 mg/dl (8.4-10.2); Carbon Dioxide 29 mmol/L (22-30); Chloride 99 mmol/L (98-107); Estimated Creatinine Clearance 112 ml/min; Glucose 170 mg/dl (70-99); Potassium 3.9 mmol/L (3.5-5.1); Sodium 138 mmol/L (135-145); Total Bilirubin 0.3 mg/dl (0.2-1.3); Total Protein 7.8 g/dl (6.3-8.2); eGFR > 60.00
[2024-11-19] MEDS: DILAUDID 0.5 MG IV (02:57)
[2024-11-19 03:00] VITALS: BP 145/81
[2024-11-19 03:03] VITALS: BP 145/81; BP 152/77; PULSE 105; PULSE 106
[2024-11-19] MEDS: FERRLECIT 110 MG IV (03:24)
[2024-11-19] MEDS: ZOFRAN 4 MG IV (03:59)
[2024-11-19 04:00] VITALS: BP 132/62
--- NOTE | 2024-11-19 04:17 | ED.GENMED ---
History of Present Illness
General
Chief Complaint: Abnormal Lab Value
Source: patient and previous hospital records
Exam Limitations: none
Time Seen by Provider: 11/19/24 02:00
History of Present Illness
History of Present Illness:
44-year-old woman with longstanding history of dysfunctional uterine bleeding with chronic anemia. Previous hospitalization here April 2024 for treatment of acute on chronic anemia requiring blood transfusion with hemoglobin below 6. Pelvic
ultrasound was unremarkable and similarly unremarkable pelvic ultrasound 2021.
During that hospitalization in April she was evaluated by [facility] TE[facility]ER and recommended to resume norethindrone and plan for follow-up as an outpatient in the office. Unfortunately, due to insurance stipulations she must follow-up with [facility] at [place] and
admits that she has neglected to do so.
She continues with heavy menstrual periods and was evaluated in this ED September 22 of this year with very similar complaint of heavy periods as well as complaints of exacerbation of her chronic low back pain, chronic left knee pain.
She follows with pain management, chronically maintained on Oxy IR 10 mg 4 times daily.
She has had no falls, no fever nor chills. No difficulty moving her bowels or bladder.
She does admit to some dyspnea on exertion when going up and down stairs otherwise no chest pain, no shortness of breath, no dizziness nor lightheadedness.
She complains of heavy menses that lasted 3 weeks but has since stopped over the past day or 2.
She was evaluated at [facility] perhaps 3 weeks ago and placed on a short course of Aygestin which she completed 1 week ago. She states blood work was not performed during that ED visit.
She has been compliant with pain management follow-ups with most recent visit yesterday.
Past History
Past History
ED Past Medical History: GERD, HTN, NIDDM, Other (Gallstones; chronic back pain, chronic left knee pain-narcotic dependent) and Other (Dysfunctional uterine bleeding with symptomatic anemia)
ED Past Surgical History: Cholecystectomy and
Social History
Tobacco: Non-smoker
Alcohol: None
Personal:
Living: with family
Employment: Not employed
Family History
Family History: Other (Noncontributory)
Phy Exam
Physical Exam
Physical Exam:
GENERAL: 44-year-old morbidly obese woman appears her stated age, awake and alert, pleasant, easily communicative and in no acute distress.
EYE: pupils equal and reactive. anicteric
NECK: Supple, nontender, no meningismus, no significant adenopathy.
ENT: oral mucosa is moist. No rhinorrhea.
CARDIAC: Regular rate and rhythm. no murmur.
LUNGS: Clear breath sounds bilaterally, no acute respiratory distress, no wheezes/rales/rhonchi
ABDOMEN: Rotund, soft, nondistended, without focal tenderness, no r/g, no cvat. normoactive BS.
NEUROLOGICAL: Alert and oriented x3, no focal neuro deficits. Gait is slow but steady.
SKIN: Warm and dry, normal color, skin intact. No rash.
MUSCULOSKELETAL: No C/C/E. peripheral pulses are full and equal b/l. No palpable tenderness.
PSYCH: Normal and appropriate interaction.
Course
Orders/Labs/Results
Orders:
Orders
11/19/24 01:39
Test Result ONCE
11/19/24 02:00
Type And Crossmatch [Type+Screen] Urgent
CMP [Comprehensive Metabolic Panel] Urgent
Complete Blood Count/With Diff Urgent
HCG, Serum Qualitative Screen Urgent
11/19/24 02:47
Ferric Gluconate [Ferrlecit] 125 mg 0.9% Sodium Chloride 100 ml [Nss] 100 ml IV NOW
11/19/24 02:49
Finn Wrap Left-Treatment ONCE
HYDROmorphone [Dilaudid] 0.5 mg IV NOW STA
11/19/24 02:50
Orthostatic VS- Treatment ONCE
11/19/24 03:09
Ferric Gluconate [Ferrlecit] 125 mg 0.9% Sodium Chloride 100 ml [Nss] 100 ml IV NOW
11/19/24 03:55
Ondansetron Injectable [Zofran] 4 mg IV NOW STA
Abnormal Lab Results
11/19/24
02:00
WBC 12.5 H 10^3/uL
(4.8-10.8)
RBC 3.60 L 10^6/uL
(4.20-5.40)
Hgb 6.1 L* g/dL
(12.0-16.0)
Hct 22.5 L %
(37.0-47.0)
MCV 62.5 L fL
(81.0-99.0)
MCH 16.9 L pg
(27.0-31.0)
MCHC 27.1 L g/dL
(33.0-37.0)
RDW 19.2 H %
(11.5-14.5)
Plt Count 536 H 10^3/uL
(130-400)
Abs Immat Gran (auto) 0.1 H 10^3/uL
(0-0.05)
Absolute Neuts (auto) 6.9 H 10^3/uL
(1.4-6.5)
Absolute Lymphs (auto) 4.3 H 10^3/uL
(1.2-3.4)
Absolute Monos (auto) 0.9 H 10^3/uL
(0.1-0.6)
Glucose 170 H mg/dl
(70-99)
11/19/24 02:00
11/19/24 02:00
Vital Signs
Initial and Last Documented VS:
Initial Vital Signs
Temp Pulse Resp BP Pulse Ox
99.6 F 122 24 169/95 100
11/19/24 00:31 11/19/24 00:31 11/19/24 00:31 11/19/24 00:31 11/19/24 00:31
Last Documented Vital Signs
Temp Pulse Resp BP Pulse Ox
99.6 F 98 22 132/62 100
11/19/24 00:31 11/19/24 04:00 11/19/24 04:00 11/19/24 04:00 11/19/24 04:00
MDM/Problems Addressed
Differential Diagnosis Includes:
Concern for symptomatic anemia.
Similar complaints on previous visits, most recently September of this year where hemoglobin noted to be 7.6. Started on oral iron but admits to difficulty following up with [facility] TE[facility] as well as PCP.
Hemoglobin today is 6.1. This is quite low but patient has had similar low hemoglobins in the past without symptomatology requiring blood transfusion when hemoglobin dips below 6.
Will check orthostatic vital signs.
It is reassuring that patient has stopped bleeding over the past day or 2.
If orthostatic vital signs are negative recommend an IV dose of iron and will resume oral iron.
Recommend resumption of daily norethindrone 5 mg.
Going forward, patient has been urged to follow-up with her head of partner development at [place] for further evaluation and definitive care of her dysfunctional uterine bleeding.
She does note chronic low back pain, chronic knee pain, ongoing issue and follows with pain management, chronically maintained on oxycodone IR 10 mg 4 times daily.
She has had no falls, is afebrile.
She complains of exacerbation of her chronic pain. I have offered 1 time small dose of IV Dilaudid but going forward will avoid any further narcotics.
Again, stressed the importance of follow-up with pain management.
Chronic conditions affecting care: Other (Dysfunctional uterine bleeding, chronic orthopedic pain syndrome.)
Acute Exacerbation and/or Progression of Chronic Illness: Other ( Exacerbation of chronic pain syndrome, ongoing dysfunctional uterine bleeding)
*Pulse Oximetry
Patient hypoxic: no
*Critical Care Note
Total Time (30-74mins, 75-104mins- exclusive of procedures): Not Applicable
Update Note
Update Note:
04:20
Orthostatic vital signs are negative.
IV iron infusing. Tolerating well.
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
Recommend resumption of daily iron, resumption of daily norethindrone.
Recommend prompt follow-up with [facility] TE[facility] for further evaluation.
ED Attending Note
-
Portions of this chart may have been created with voice recognition software.� Occasional wrong word or��sound alike� substitutions may have occurred due to the inherent limitations of voice recognition software.
Discharge Plan
Departure
Patient Disposition: Home (Routine Discharge)
Date of Disposition: 11/19/24
Time of Disposition: 04:22
Patient with high blood pressure during this ER visit?: No
Condition: Good
Discharge Problem:
chronic anemia r/t DUB, Exacerbation of chronic back pain, Exacerbation of chronic left knee pain
Instructions: Anemia caused by low iron, Heavy Periods ED
Prescriptions:
New
Slow Fe 137 mg (45 mg iron) tablet extended release
137 mg PO DAILY Qty: 30 1RF
norethindrone acetate 5 mg tablet
5 mg PO DAILY Qty: 30 1RF
Referrals:
UNKNOWN - PT DOES,NOT KNOW [Family Provider] -
Activity Restrictions/Additional Instructions:
You have been prescribed oral iron tablet as well as norethindrone, both to be taken once daily and to continue on a daily basis.
It is imperative that you follow-up promptly with your head of partner development at [place] for further evaluation.
Interventions
Interventions:
*Risk Screen - Suicide Last Done: 11/19/24 00:31
*General Assessment Last Done: 11/19/24 02:04
*Neglect/Abuse Screening Last Done: 11/19/24 02:06
*ED- Fall Risk Assessment Last Done: 11/19/24 02:04
*ED COVID-19 Vaccine History Last Done: 11/19/24 02:04
Discharge Date and Time
Print Language: IRAQI
== END 2024-11-19 04:32 | disposition home or self-care (01) ==
LOC: EMR 00:19
PROVIDERS: EMERGENCY PHYSICIAN Emergency Medicine
DX: D64.9 Anemia, unspecified (principal); N93.8 Other specified abnormal uterine and vaginal bleeding; G89.29 Other chronic pain; M54.9 Dorsalgia, unspecified; M25.562 Pain in left knee; E11.9 Type 2 diabetes mellitus without complications; I10 Essential (primary) hypertension; K21.9 Gastro-esophageal reflux disease without esophagitis; Z90.49 Acquired absence of other specified parts of digestive tract
CPT/HCPCS: 96365; 96375; 99284; 80053; 84703; 85025; 86850; 86900; 86901; J2916

== ENCOUNTER 2025-03-11 00:36 | Emergency (ER) | payer OTHER, SELFPAY ==
[2025-03-11] VITALS (21 sets, daily range): BP systolic 114–174; BP diastolic 54–101
[2025-03-11 02:57] LABS: ALT (SGPT) < 10 U/L (0-35); AST (SGOT) 13 U/L (14-36); Albumin 3.8 g/dl (3.5-5.0); Alkaline Phosphatase 70 U/L (38-126); Blood Urea Nitrogen 10 mg/dl (7-17); Calcium 8.9 mg/dl (8.4-10.2); Carbon Dioxide 25 mmol/L (22-30); Chloride 107 mmol/L (98-107); Glucose 159 mg/dl (70-99); Potassium 4.2 mmol/L (3.5-5.1); Sodium 139 mmol/L (135-145); Total Bilirubin 0.3 mg/dl (0.2-1.3); eGFR > 60.00
[2025-03-11 03:05] LABS: % Basophils 0.6 % (0-2); % Eosinophils 1.5 % (0-6); % Immature Granulocytes 0.7 % (0-0.5); % Lymphocytes 29.6 % (20.5-51.1); % Monocytes 5.8 % (1.7-9.3); % Neutrophils 61.8 % (42.2-75.2); Absolute Basophils 0.1 10^3/uL (0-0.2); Absolute Eosinophils 0.2 10^3/uL (0-0.7); Absolute Immature Granulocytes 0.1 10^3/uL (0-0.05); Absolute Monocytes 0.6 10^3/uL (0.1-0.6); Absolute Neutrophils 6.3 10^3/uL (1.4-6.5); Hematocrit 17.8 % (37.0-47.0); Hemoglobin 4.6 g/dL (12.0-16.0); Mean Corp Hgb Conc. 25.8 g/dL (33.0-37.0); Mean Corpuscular Hgb 16.1 pg (27.0-31.0); Mean Corpuscular Volume 62.5 fL (81.0-99.0); Mean Platelet Volume 9.3 fL (7.4-10.4); Nucleated Red Blood Cells % 0.3 %; Platelet Count 388 10^3/uL (130-400); Red Blood Cell Count 2.85 10^6/uL (4.20-5.40); Red Cell Dist. Width 20.4 % (11.5-14.5); White Blood Cell Count 10.2 10^3/uL (4.8-10.8)
[2025-03-11 03:20] LABS: Urine Albumin 1+ (Neg - Trace); Urine Bilirubin Negative (Negative); Urine Character Slightly Cloudy (Clear); Urine Color Yellow; Urine Glucose Negative (Negative); Urine Ketone Negative (Negative); Urine Leukocyte 1+ (Negative); Urine Nitrite Negative (Negative); Urine Occult Blood 4+ (Negative); Urine Specific Gravity 1.025 (<1.030); Urine Urobilinogen Negative (Neg - 1+)
[2025-03-11 03:32] LABS: Anisocytosis 2+; Normal RBC Morphology No
[2025-03-11 03:33] LABS: Polychromasia 1+
[2025-03-11 03:34] LABS: Hypochromasia 3+; Ovalocytes 1+; Stomatocytes 1+; Target Cells 1+
[2025-03-11 03:36] LABS: Tear Drop Red Blood Cells Occasional
[2025-03-11] MEDS: NSS 1000 IV (03:50)
[2025-03-11] MEDS: DILAUDID 0.5 MG IV ×3 (03:51→09:36)
[2025-03-11 04:09] LABS: Urine Amorphous Seen; Urine Squamous Cell >30 /LPF (Few)
[2025-03-11 04:10] LABS: Urine Bacteria Many (Negative); Urine Red Blood Cell >100 /HPF (0-2)
[2025-03-11 04:14] LABS: HCG, Serum Qualitative Screen Negative
[2025-03-11] MEDS: BENADRYL 25 MG IV (04:17)
[2025-03-11] MEDS: TYLENOL 1000 MG PO (04:18)
--- NOTE | 2025-03-11 05:00 | EDRN ---
Patient asking for some apple juice and jaylan crackers.
--- NOTE | 2025-03-11 06:00 | EDRN ---
Patient up to ambulate to the restroom, stable ambulation
--- NOTE | 2025-03-11 06:40 | EDRN ---
Patient reporting more pain, got medication ordered for patient, call hugo in reach, patient reminded about keeping blood pressure cuff on she keeps taking it off.
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
--- NOTE | 2025-03-11 07:12 | EDRN ---
Report to Barrie Rea
== END 2025-03-11 11:16 | disposition home or self-care (01) ==
LOC: EMR 00:36
PROVIDERS: EMERGENCY PHYSICIAN Emergency Medicine
DX: N93.8 Other specified abnormal uterine and vaginal bleeding (principal); M54.50 Low back pain, unspecified; D64.9 Anemia, unspecified; R42 Dizziness and giddiness; R06.02 Shortness of breath; N92.0 Excessive and frequent menstruation with regular cycle; G89.29 Other chronic pain; E11.9 Type 2 diabetes mellitus without complications; K21.9 Gastro-esophageal reflux disease without esophagitis; I10 Essential (primary) hypertension; M25.562 Pain in left knee; F11.20 Opioid dependence, uncomplicated; E66.01 Morbid (severe) obesity due to excess calories; Z90.49 Acquired absence of other specified parts of digestive tract
CPT/HCPCS: 99285; 36430; 80053; 81003; 81015; 84703; 85025; 86850; 86900; 86901; 86920; 87086; P9016

== ENCOUNTER 2025-08-26 00:03 | Emergency (ER) | payer OTHER, SELFPAY ==
[2025-08-26 00:06] VITALS: BP 171/100
--- NOTE | 2025-08-26 00:32 | ED.GENMED ---
History of Present Illness
<Katerina Nolasco PA-C - Last Filed: 08/26/25 03:26>
General
Chief Complaint: Back Pain
Source: patient and records
Exam Limitations: none
Time Seen by Provider: 08/26/25 00:31
History of Present Illness
History of Present Illness:
45yoF with a history of scoliosis, chronic back pain, chronic anemia, and obesity presenting for evaluation of multiple complaints. Patient reports lightheadedness and nausea for the past week or so. She is also been having pain in her tongue and
is having trouble eating due to the discomfort. She started to have worsening generalized back pain yesterday. She does have a history of chronic back pain due to her scoliosis. She takes 10 mg of oxycodone at home but states this is for her leg
pain and does not help her back pain. She states she typically gets IV Dilaudid in the ED when she has this pain. She denies any trauma or inciting incident. No saddle anesthesia, lower extremity paresthesias, urinary symptoms, incontinence,
fevers, abdominal pain, chest pain, shortness of breath. No history of back surgeries, IV drug use, or malignancy. Patient was last seen in the ED in February 2025 for acute on chronic back pain. She is also noted to be severely anemic at that time
with a hemoglobin of 4.6. She received 3 units PRBCs for transfusion and was ultimately discharged. Her anemia was thought to be related to dysfunctional uterine bleeding. Patient states that her menses have since normalized and last menstrual
period was at the end of June.
Past History
<Katerina Nolasco PA-C - Last Filed: 08/26/25 03:26>
Past History
ED Past Medical History: GERD, HTN, NIDDM, Other (Gallstones; chronic back pain, chronic left knee pain-narcotic dependent) and Other (Dysfunctional uterine bleeding with symptomatic anemia)
ED Past Surgical History: Cholecystectomy and
Social History
Tobacco: Non-smoker
Alcohol: None
Personal:
Living: with family
Employment: Not employed
Family History
Family History: Other (Noncontributory)
Phy Exam
<Katerina Nolasco PA-C - Last Filed: 08/26/25 03:26>
General Physical Exam
General Presentation: well appearing and no apparent distress
General Skin: warm and dry
General Habitus: normal
General Mental: alert
ENT Exam
ENT Exam: normocephalic and other (Hyperpigmentation noted on tongue. No evidence of thrush. No oral lesions or evidence of dental infection.)
Cardiovascular Exam
Cardiovascular Exam: regular rate/rhythm
Pulmonary Exam
Pulmonary Exam: lungs clear, no respiratory distress, no rales, no crackles, no rhonchi and no wheezing
Neurological Exam
Neurological Exam: alert
[place] Coma Scale
Eye Opening: Spontaneous
Verbal Response: Oriented
Motor Response: Obeys Commands
GCS Total Score: 15
Musculoskeletal Exam
Musculoskeletal Exam: other (+Diffuse tenderness throughout thoracic and lumbar region. No skin changes.)
Skin Exam
Skin Exam: normal color and warm/dry
Psychiatric Exam
Psychiatric Exam: normal mood/affect
Course
<Katerina Nolasco PA-C - Last Filed: 08/26/25 03:26>
Orders/Labs/Results
Orders:
Orders
08/26/25 00:04
EKG [Electrocardiogram (*1)] Urgent
Reason for Study: Chest Pain
Other Reason for Exam: tongue and back pain
EKG- Treatment ONCE
08/26/25 00:52
HYDROmorphone [Dilaudid] 1 mg IV NOW STA
Test Result ONCE
08/26/25 00:57
Complete Blood Count/With Diff Urgent
Comprehensive Metabolic Panel Urgent
Ferritin Urgent
HCG, Serum Qualitative Screen Urgent
Iron Urgent
TIBC [Total Iron Binding] Urgent
08/26/25 01:09
Type+Screen Urgent
08/26/25 01:24
0.9% Sodium Chloride 1000 ml [Nss] 1,000 ml IV BOLUS
Abnormal Lab Results
08/26/25
00:57
RBC 3.79 L 10^6/uL
(4.20-5.40)
Hgb 5.8 L* g/dL
(12.0-16.0)
Hct 22.8 L %
(37.0-47.0)
MCV 60.2 L fL
(81.0-99.0)
MCH 15.3 L pg
(27.0-31.0)
MCHC 25.4 L g/dL
(33.0-37.0)
RDW 20.7 H %
(11.5-14.5)
Plt Count 472 H 10^3/uL
(130-400)
Glucose 104 H mg/dl
(70-99)
Iron 31 L ug/dl
(37-170)
% Saturation 6 L %
(20-50)
Ferritin 3.7 L ng/ml
(6.24-137)
08/26/25 00:57
08/26/25 00:57
Vital Signs
Initial and Last Documented VS:
Initial Vital Signs
Temp Pulse Resp BP Pulse Ox
99.0 F 100 20 171/100 100
08/26/25 00:06 08/26/25 00:06 08/26/25 00:06 08/26/25 00:06 08/26/25 00:06
Last Documented Vital Signs
Temp Pulse Resp BP Pulse Ox
99.0 F 94 12 143/64 100
08/26/25 00:06 08/26/25 02:01 08/26/25 02:01 08/26/25 00:39 08/26/25 00:39
<Ernie Mtz Radha, DO - Last Filed: 08/26/25 02:38>
Orders/Labs/Results
Orders:
Orders
08/26/25 00:04
EKG [Electrocardiogram (*1)] Urgent
Reason for Study: Chest Pain
Other Reason for Exam: tongue and back pain
EKG- Treatment ONCE
08/26/25 00:52
HYDROmorphone [Dilaudid] 1 mg IV NOW STA
Test Result ONCE
08/26/25 00:57
Complete Blood Count/With Diff Urgent
Comprehensive Metabolic Panel Urgent
Ferritin Urgent
HCG, Serum Qualitative Screen Urgent
Iron Urgent
TIBC [Total Iron Binding] Urgent
08/26/25 01:09
Type+Screen Urgent
08/26/25 01:24
0.9% Sodium Chloride 1000 ml [Nss] 1,000 ml IV BOLUS
Abnormal Lab Results
08/26/25
00:57
RBC 3.79 L 10^6/uL
(4.20-5.40)
Hgb 5.8 L* g/dL
(12.0-16.0)
Hct 22.8 L %
(37.0-47.0)
MCV 60.2 L fL
(81.0-99.0)
MCH 15.3 L pg
(27.0-31.0)
MCHC 25.4 L g/dL
(33.0-37.0)
RDW 20.7 H %
(11.5-14.5)
Plt Count 472 H 10^3/uL
(130-400)
Glucose 104 H mg/dl
(70-99)
Iron 31 L ug/dl
(37-170)
% Saturation 6 L %
(20-50)
Ferritin 3.7 L ng/ml
(6.24-137)
08/26/25 00:57
08/26/25 00:57
Vital Signs
Initial and Last Documented VS:
Initial Vital Signs
Temp Pulse Resp BP Pulse Ox
99.0 F 100 20 171/100 100
08/26/25 00:06 08/26/25 00:06 08/26/25 00:06 08/26/25 00:06 08/26/25 00:06
Last Documented Vital Signs
Temp Pulse Resp BP Pulse Ox
99.0 F 94 12 143/64 100
08/26/25 00:06 08/26/25 02:01 08/26/25 02:01 08/26/25 00:39 08/26/25 00:39
<Katerina Nolasco PA-C - Last Filed: 08/26/25 03:26>
MDM/Problems Addressed
Differential Diagnosis Includes:
45yoF here with multiple complaints including lightheadedness and tongue pain x 1 week and acute on chronic back pain x 1 day. She is hypertensive with otherwise stable vital signs. Hyperpigmentation noted to tongue on exam without lesions or
signs of thrush. Differential diagnosis includes: Acute on chronic back pain, muscular strain, degenerative disc disease, symptomatic anemia
Initial ED plan: Triage EKG shows normal sinus rhythm without ischemic changes. Check CBC, CMP, iron studies, and hCG. IV Dilaudid ordered for pain.
<Katerina Nolasco PA-C - Last Filed: 08/26/25 03:26>
*Pulse Oximetry
SaO2: 100
Oxygen Mode of Delivery: Room air
Patient hypoxic: no
*EKG
Interpreted by ED Provider?: Yes
EKG Intrepretation Date: 08/26/25
Heart Rate: 93
Rate: normal
Rhythm: sinus
[place]: normal axis
Interval: normal interval
QRS Pattern: normal QRS
Ischemia: no ischemia
*Critical Care Note
Total Time (30-74mins, 75-104mins- exclusive of procedures): Not Applicable
<Katerina Nolasco PA-C - Last Filed: 08/26/25 03:26>
Update Note
Update Note:
Hemoglobin significantly low at 5.8 although does appear consistent with prior labs. Ferritin low and MCV low consistent with iron deficiency anemia. This was previously thought to be secondary to heavy menses although she has not had a period in
over a month. She denies any bloody or black stools. Recommended rectal exam which she is refusing. Also recommended blood transfusion given degree of anemia. After thorough discussion, patient is refusing this stating it is against her evangelical
despite her receiving blood transfusions previously. Discussed with patient that she is leaving ED against medical advice. 30-day prescription for ferrous sulfate sent to pharmacy. She does not currently have a PCP or a accounts receivable executive and contact
information for both provided. Unclear etiology of tongue discoloration and contact information also given for oral surgery. Patient refused to sign AMA paperwork at discharge. She was also evaluated by Dr. Garcia.
ED Attending Note
<Katerina Nolasco PA-C - Last Filed: 08/26/25 03:26>
-
Portions of this chart may have been created with voice recognition software.� Occasional wrong word or��sound alike� substitutions may have occurred due to the inherent limitations of voice recognition software.
<Ernie Garcia DO - Last Filed: 08/26/25 02:38>
ED Attending Note
Patient seen and examined by attending physician: Yes
I performed the substantive portion of visit, reviewed & personally made and approve the management plan that is documented in note by myself or PATRICK.: Yes
ED Attending Note:
I evaluated the patient at bedside. The patient is anemic with a hemoglobin of 5.8. Suspect iron deficiency anemia. She does have hyperpigmentation of the dorsal aspect of the tongue of uncertain etiology but she states this have been ongoing for
the past week. No clear abnormality on evaluation of the posterior oropharynx however the exam is limited. We are giving her contact information for other doctors that she can follow-up with. I also recommended that she have a blood transfusion
tonight of note her hemoglobin has been in this general range of 5-7 over the past 3 years. She has refused blood transfusion. Of note, patient also has refused to sign AGAINST MEDICAL ADVICE form.
Discharge Plan
Departure
Patient Disposition: Against Medical Advice
Date of Disposition: 08/26/25
Time of Disposition: 02:35
Discharge Problem:
Anemia, Acute on chronic back pain, Tongue discoloration
Instructions: Chronic pain, Anemia in adults, possibly from low iron - ED (DC)
Prescriptions:
New
ferrous sulfate 325 mg (65 mg iron) tablet
325 mg PO DAILY Qty: 30 0RF
No Action
Slow Fe 137 mg (45 mg iron) tablet extended release
137 mg PO DAILY Qty: 30 1RF
norethindrone acetate 5 mg tablet
5 mg PO DAILY Qty: 30 1RF
norethindrone acetate 5 mg tablet
5 mg PO DAILY 30 Days Qty: 30 1RF
Slow Fe 137 mg (45 mg iron) tablet extended release
137 mg PO BID Qty: 60 1RF
Referrals:
[facility] [Provider Group]
Payam Chen DO [Active, Hematology / Oncology]
NONE,* [Family Provider, Internal Medicine]
Ping Holbrook, JUAN ALBERTO [Active, Dental]
Activity Restrictions/Additional Instructions:
Your hemoglobin is severely low today at 5.8. We recommended that you have a blood transfusion but you refused this. A prescription for an iron supplement was sent to your pharmacy.
Please call on Thursday to schedule follow-up appointments with a family doctor, accounts receivable executive, and oral surgeon.
Return to the ER immediately with any new or worsening symptoms or if you change your mind about the blood transfusion.
Interventions
Interventions:
*Risk Screen - Suicide Last Done: 08/26/25 00:06
*General Assessment Last Done: 08/26/25 02:07
*Neglect/Abuse Screening Last Done: 08/26/25 02:45
*ED COVID-19 Vaccine History Last Done: 08/26/25 02:45
*ED Influenza Vaccine History Last Done: 08/26/25 02:45
[facility] Fall Risk Assessment Tool Last Done: 08/26/25 02:06
*Nursing Disposition Last Done: 08/26/25 02:53
ED-Musculoskeletal Assessment Last Done: 08/26/25 00:39
Discharge Date and Time
Print Language: CAMEROONIAN
[2025-08-26 00:39] VITALS: BP 143/64
[2025-08-26] MEDS: DILAUDID 1 MG IV (01:15)
[2025-08-26 01:27] LABS: HCG, Serum Qualitative Screen Negative
[2025-08-26] MEDS: NSS 1000 IV (01:30)
[2025-08-26 01:34] LABS: ALT (SGPT) < 10 U/L (0-35); AST (SGOT) 28 U/L (14-36); Albumin 4.2 g/dl (3.5-5.0); Alkaline Phosphatase 74 U/L (38-126); Blood Urea Nitrogen 14 mg/dl (7-17); Calcium 9.1 mg/dl (8.4-10.2); Carbon Dioxide 27 mmol/L (22-30); Chloride 102 mmol/L (98-107); Glucose 104 mg/dl (70-99); Iron 31 ug/dl (37-170); Potassium 4.2 mmol/L (3.5-5.1); Sodium 136 mmol/L (135-145); Total Protein 7.9 g/dl (6.3-8.2); eGFR > 60.00
[2025-08-26 01:43] LABS: Total Iron Binding Capacity 459 ug/dl (265-497)
[2025-08-26 01:48] LABS: Hematocrit 22.8 % (37.0-47.0); Hemoglobin 5.8 g/dL (12.0-16.0); Mean Corp Hgb Conc. 25.4 g/dL (33.0-37.0); Mean Corpuscular Volume 60.2 fL (81.0-99.0); Platelet Count 472 10^3/uL (130-400); Red Cell Dist. Width 20.7 % (11.5-14.5)
[2025-08-26 02:02] LABS: Ferritin 3.7 ng/ml (6.24-137)
[2025-08-26 02:51] LABS: Nucleated Red Blood Cells % 0 %
[2025-08-26 02:54] LABS: Target Cells 1+
[2025-08-26 02:55] LABS: Anisocytosis 1+
[2025-08-26 02:56] LABS: Hypochromasia 2+; Ovalocytes 1+; Poikilocytosis 1+
[2025-08-26 03:15] LABS: Normal RBC Morphology Yes
== END 2025-08-26 02:53 | disposition left against medical advice (07) ==
LOC: EMR 00:03
PROVIDERS: Physician Assistant; EMERGENCY PHYSICIAN Emergency Medicine
DX: D64.9 Anemia, unspecified (principal); M54.9 Dorsalgia, unspecified; L81.9 Disorder of pigmentation, unspecified; E11.9 Type 2 diabetes mellitus without complications; I10 Essential (primary) hypertension; E66.9 Obesity, unspecified; K21.9 Gastro-esophageal reflux disease without esophagitis; M41.9 Scoliosis, unspecified; M25.562 Pain in left knee; G89.29 Other chronic pain; Z79.891 Long term (current) use of opiate analgesic
CPT/HCPCS: 99284; 96374; 96361; 80053; 82728; 83540; 83550; 84703; 85025; 86850; 86900; 86901; 93005

== ENCOUNTER 2025-09-05 14:25 | Emergency (ER) | payer OTHER, SELFPAY ==
[2025-09-05] VITALS (9 sets, daily range): BP systolic 126–145; BP diastolic 59–107
[2025-09-05 15:46] LABS: Hematocrit 23.5 % (37.0-47.0); Hemoglobin 6.2 g/dL (12.0-16.0); Mean Corp Hgb Conc. 26.4 g/dL (33.0-37.0); Mean Corpuscular Volume 59.3 fL (81.0-99.0); Red Cell Dist. Width 21.1 % (11.5-14.5)
[2025-09-05 15:58] LABS: Platelet Count 373 10^3/uL (130-400)
[2025-09-05 16:05] LABS: HCG, Serum Qualitative Screen Negative
[2025-09-05 16:08] LABS: ALT (SGPT) < 10 U/L (0-35); AST (SGOT) 13 U/L (14-36); Albumin 4.2 g/dl (3.5-5.0); Alkaline Phosphatase 68 U/L (38-126); Blood Urea Nitrogen 12 mg/dl (7-17); Calcium 9.1 mg/dl (8.4-10.2); Carbon Dioxide 25 mmol/L (22-30); Chloride 102 mmol/L (98-107); Glucose 94 mg/dl (70-99); Potassium 4.3 mmol/L (3.5-5.1); Sodium 135 mmol/L (135-145); Total Protein 7.9 g/dl (6.3-8.2); eGFR > 60.00
[2025-09-05] MEDS: DILAUDID 1 MG IV ×4 (16:19→21:08)
--- NOTE | 2025-09-05 16:24 | ED.GENMED ---
History of Present Illness
General
Chief Complaint: Urinary Symptoms
Time Seen by Provider: 09/05/25 15:37
History of Present Illness
History of Present Illness:
45-year-old female with history of iron deficiency anemia and chronic pain on opiates presenting to the emergency department for 1 week of lower abdominal pain. Patient notes some pressure with urination as well as some left flank pain. Denies any
history of UTI or kidney infection. Denies any history of kidney stones. Does note some blood in her urine. Denies fever. Denies chest pain or difficulty breathing. Denies vomiting or changes in her stool. Patient does have known anemia and
suspects her blood counts are low, has been feeling slightly lightheaded upon standing as well as short of breath. Denies additional acute medical complaints
Past History
Past History
ED Past Medical History: GERD, HTN, NIDDM, Other (Gallstones; chronic back pain, chronic left knee pain-narcotic dependent) and Other (Dysfunctional uterine bleeding with symptomatic anemia)
ED Past Surgical History: Cholecystectomy and
Social History
Tobacco: Non-smoker
Alcohol: None
Personal:
Living: with family
Employment: Not employed
Family History
Family History: Other (Noncontributory)
Phy Exam
Physical Exam
Physical Exam:
General: Well-appearing, no clinical signs of dehydration, nontoxic and in no acute distress. Morbidly obese
HEENT: protecting airway
Neck: appears supple
CV: Normal heart rate, regular rhythm
Resp: No accessory muscle use, no increased work of breathing, lungs clear to auscultation bilaterally
Abd: Soft and non-distended, generalized tenderness to lower abdomen without rebound or guarding. No CVA tenderness
Extremities: No deformities, no swelling
Neuro: alert, no focal neurologic deficit
: deferred
Rectal: deferred
Psych: Normal affect
Skin: Intact
Course
Orders/Labs/Results
Orders:
Orders
09/05/25 14:35
Test Result ONCE
09/05/25 15:27
CBC/No Diff [Complete Blood Count/No Diff] Urgent
Comprehensive Metabolic Panel Urgent
HCG, Serum Qualitative Screen Urgent
09/05/25 16:05
HYDROmorphone [Dilaudid] 1 mg IV NOW STA
09/05/25 16:06
CT Abd/pelvis W Iv Cont Urgent
Comment:
Reason For Exam: lower abdominal pain
09/05/25 16:51
Type+Screen Urgent
BBK Wristband Number:
09/05/25 17:14
Urinalysis Reflex To Culture Urgent
Date Specimen was Collected: 09/05/25
Time Specimen was Collected: 14:35
Urine Microscopic Reflex Cult Urgent
09/05/25 17:21
US Pelvis W Transvag Combined Urgent
Comment:
Reason For Exam: lower abdominal pain, b/l ovarian cysts
09/05/25 17:24
HYDROmorphone [Dilaudid] 1 mg .ROUTE .STK-MED ONE
09/05/25 17:26
HYDROmorphone [Dilaudid] 1 mg IV NOW STA
09/05/25 17:37
* Blood Bank Products Urgent
Blood Bank Products: *Packed RBC Leuko (PRBC's
Quantity: 1
Transfuse Today: Yes
Reason: Anemia
09/05/25 19:29
HYDROmorphone [Dilaudid] 1 mg IV NOW STA
09/05/25 21:01
HYDROmorphone [Dilaudid] 1 mg IV NOW STA
Abnormal Lab Results
09/05/25 09/05/25 09/05/25
15: 16:51 17:14
RBC 3.96 L 10^6/uL
(4.20-5.40)
Hgb 6.2 L* g/dL
(12.0-16.0)
Hct 23.5 L %
(37.0-47.0)
MCV 59.3 L fL
(81.0-99.0)
MCH 15.7 L pg
(27.0-31.0)
MCHC 26.4 L g/dL
(33.0-37.0)
RDW 21.1 H %
(11.5-14.5)
AST 13 L U/L
(14-36)
Urine Bacteria (Reflex) Few A
(Negative)
Urine Albumin (Reflex) 2+ A
(Neg - Trace)
Crossmatch IS Only See Detail
09/05/25 15:27
09/05/25 15:27
Vital Signs
Initial and Last Documented VS:
Initial Vital Signs
Temp Pulse Resp BP Pulse Ox
98.4 F 84 16 145/86 99
09/05/25 14:31 09/05/25 14:31 09/05/25 14:31 09/05/25 14:31 09/05/25 14:31
Last Documented Vital Signs
Temp Pulse Resp BP Pulse Ox
98.3 F 85 18 143/107 99
09/05/25 19:33 09/05/25 19:33 09/05/25 19:33 09/05/25 19:33 09/05/25 16:25
MDM/Problems Addressed
MDM/Problems Addressed:
45-year-old female with history of anemia and chronic pain presenting to the emergency department for lower abdominal pain. Vital signs on arrival are significant for mild hypertension.
On exam patient is in no acute distress, slightly uncomfortable secondary to pain. On abdominal exam, generalized tenderness to lower abdomen. Does note some urinary symptoms, so ascending urinary tract infection and possible pyelonephritis is a
consideration. Currently afebrile, nontoxic. Kidney stone is also a consideration. Plan for laboratory analysis and CT abdominal imaging as well as urinalysis. Patient requesting Dilaudid for pain, chronic opioid dependence.
16:10 - Patient's labs show anemia. Given that patient is symptomatic with some dyspnea and lightheadedness, will obtain consent and transfuse
17:20 - Patient CT shows bilateral ovarian cysts. Given location of symptoms, will obtain pelvic ultrasound.
21:30 - Pelvic ultrasound without torsion. Cyst on the left ovary is complex, possibly hemorrhagic which could explain patient's pain. Patient required multiple doses of Dilaudid. Offered admission for her pain as well as her symptomatic anemia,
however due to social reasons, does not want to stay in the hospital. Advise close interval follow-up with a bow rehairer as well as her primary care doctor given her anemia. Strict return precautions communicated and patient verbalized
understanding
*Pulse Oximetry
SaO2: 99
Oxygen Mode of Delivery: Room air
Patient hypoxic: no
*Critical Care Note
Total Time (30-74mins, 75-104mins- exclusive of procedures): Not Applicable
ED Attending Note
-
Portions of this chart may have been created with voice recognition software.� Occasional wrong word or��sound alike� substitutions may have occurred due to the inherent limitations of voice recognition software.
Discharge Plan
Departure
Discharge Problem:
Ovarian cyst, Symptomatic anemia
Instructions: Ovarian cysts, Anemia in adults, possibly from low iron - ED (DC)
Prescriptions:
No Action
Slow Fe 137 mg (45 mg iron) tablet extended release
137 mg PO DAILY Qty: 30 1RF
norethindrone acetate 5 mg tablet
5 mg PO DAILY Qty: 30 1RF
norethindrone acetate 5 mg tablet
5 mg PO DAILY 30 Days Qty: 30 1RF
Slow Fe 137 mg (45 mg iron) tablet extended release
137 mg PO BID Qty: 60 1RF
ferrous sulfate 325 mg (65 mg iron) tablet
325 mg PO DAILY Qty: 30 0RF
Referrals:
NONE,* [Family Provider, Internal Medicine]
Interventions
Interventions:
*General Assessment Last Done: 09/05/25 14:31
*Neglect/Abuse Screening Last Done: 09/05/25 14:31
*ED COVID-19 Vaccine History Last Done: 09/05/25 15:29
*ED Influenza Vaccine History Last Done: 09/05/25 15:29
[facility] Fall Risk Assessment Tool Last Done: 09/05/25 14:46
*Risk Screen - Suicide (C-SSRS) Last Done: 09/05/25 14:31
ED-Female Genitourinary Assessment Last Done: 09/05/25 15:28
Discharge Date and Time
Print Language: GREEK
[2025-09-05 17:34] LABS: Urine Character Clear (Clear)
[2025-09-05 17:40] LABS: Urine Red Blood Cell 0-2 /HPF (0-2); Urine White Cell 0-2 /HPF (0-5)
== END 2025-09-05 22:03 | disposition home or self-care (01) ==
LOC: EMR 14:25
PROVIDERS: Emergency Medicine; EMERGENCY PHYSICIAN Student in an Organized Health Care Education/Training Program
DX: N83.292 Other ovarian cyst, left side (principal); I10 Essential (primary) hypertension; E11.9 Type 2 diabetes mellitus without complications; D64.9 Anemia, unspecified; Z90.49 Acquired absence of other specified parts of digestive tract; G89.29 Other chronic pain; F11.20 Opioid dependence, uncomplicated
CPT/HCPCS: 96374; 96376; 99284; 74177; 76830; 76856; 80053; 81003; 81015; 84703; 85027; 86850; 86900; 86901; 86920; P9016; Q9967